=== PATIENT | male | born 1980 | race Caucasian/White ===

== ENCOUNTER 2021-04-13 09:54 | Emergency (ER) | payer OTHER ==
[2021-04-13] MEDS ORDERED: NAPROXEN500 MG PO (10:32)
== END 2021-04-13 10:46 | disposition home or self-care (01) ==
LOC: FER 09:54
DX: S20.211A Contusion of right front wall of thorax, initial encounter (principal); Z88.0 Allergy status to penicillin; W50.0XXA Accidental hit or strike by another person, initial encounter; Y93.64 Activity, baseball; Y92.830 Public park as the place of occurrence of the external cause
CPT/HCPCS: 71046